=== PATIENT | male | born 1950 | race Caucasian/White ===

== ENCOUNTER 2018-10-28 14:39 | Emergency (ER) | payer MEDICARE, SELFPAY ==
[2018-10-28] VITALS (58 sets, daily range): BP systolic 145–181; BP diastolic 62–136; PULSE 62–91; RESP 8–20; TEMP 36.5; O2SAT 95–100
--- NOTE | 2018-10-28 15:05 | DI.RAD_ITS ---
SYMPTOMS/DIAGNOSIS: CHEST PAIN PA AND LATERAL CHEST: The lungs are well expanded and free of infiltrate. There is no pleural effusion. The heart is not enlarged. The hilar structures, mediastinum and tracheal air column are intact. SUMMARY: No evidence of acute cardiopulmonary disease.
--- NOTE | 2018-10-28 15:07 | W.ED.GENAD ---
Discharge Plan Disposition Patient Disposition: [facility] Condition: Serious Discharge Details Chief Complaint: Chest Pain Clinical Impression: ACS (acute coronary syndrome), Unstable angina Primary Care Provider: Lauren Mott ED Provider: Robbie Fernandez Home Meds and New Rx's Prescriptions: No Action latanoprost 2.5 ML drops 1 drp OD HS RF: 0 aspirin [Aspirin Low Dose] 81 MG tablet,delayed release (DR/EC) 1 tab PO Q OTHER DAY RF: 0 Vitamin B-12 50 MCG tablet 1 tab PO DAILY RF: 0 COSOPT EYE DROPS 5 ML drops 1 drp OU BID RF: 0 Discharge Data Discharge Date/Time-TO BE ENTERED AT DEPARTURE: 10/28/18 20:40 Medical Decision Making <Harris Manzano MD - Last Filed: 10/28/18 19:36> ECG Data Attestation: I personally reviewed and interpreted this ECG (s) as follows: Prior ECG tracings: not available for review Interpretation: sinus rhythm, rate of 60, pr 158, qtc 395, no acute st t wave ischemic findings sinus rhythm, rate of 75, normal qtc and no significant st t wave changes 3rd ekg shows sinus rhythm, normal rate and qtc, now has st elevations in II, III, aVF <EVE Verde - Last Filed: 10/29/18 09:41> Patient is a 68-year-old male presenting today with chief complaint of chest tightness. Reports that symptoms have been intermittent over the past 2 days. Reports that he has symptoms only with exertion. Reports that he is currently feeling at baseline without any discomfort. States he is having central chest tightness, weakness and occasional left shoulder discomfort with exertion. Reports that this afternoon, while shoveling snow, symptoms recurred. Reports that he went into the house and they have down after a few moments of his stabilization his symptoms seem to pass. Has not taken anything for his discomfort. Reports that he takes aspirin every other day, did not take any as of yet today. Denies any recent illness. No cough, cold, fevers or chills. Denies any GI upset. Denies any personal history of cardiac disorders. Does report that his father had an SD in his mid-to-late 50s. Vital signs significant for some hypertension at 160/91, otherwise within normal limit. EKG was reviewed by Dr. Jose Juan, please see his note. He does not note any acute ischemic changes History is concerning for cardiac etiology. Will obtain chest x-ray and laboratory evaluation. Given aspirin. Troponin 1.08. Will heparinize the patient. He remains asymptomatic. Radiologist contacted the department who advised that chest x-ray is without acute abnormality. Consulted with cardiology who advised that patient will be on the list for transfer to their facility, advised that list is short at this time and patient will likely go to their facility tonight or tomorrow morning. They advised adding Plavix to the Heparin, advised 300mg. Accepting physician will be Dr. Velasco. Will consult with hospitalist. At the end of my shift, care transitioned to Torsten Fernandez NP awaiting to hear from hospitalist regarding bed availability until able to be transfered to [facility] <Robbie Fernandez NP - Last Filed: 10/28/18 23:36> After handoff from [facility] patient was reassessed pending hospitalist admission while waiting for tertiary [facility] cardiac availability for further testing for unstable angina. Patient remained pain-free with no new complaints and stated he was comfortable otherwise. Spoke with Dr. Kauffman in regards to admission to our inpatient unit while patient receiving heparin and already been given Plavix and aspirin. Dr. Kauffman came to the emergency department and seen and evaluated patient for admission. Pending admission nursing staff development coordinator noticed some EKG changes on monitor but twelve-lead was performed and reviewed with Dr. Kenny Manzano. Called and spoke with Dr. Pizarro at [facility] cardiology team and informed them of the EKG changes as well as faxed the EKG. after discussing case with her attending Dr. Wynne agreement was to have patient admitted to their facility for further testing and stabilization. She recommended an additional 300 mg of Plavix and immediate transfer of patient down to their facility for further testing. Patient remains pain-free and otherwise asymptomatic. Pending transfer patient did have normalization of EKG with sinus rhythm, rate of 82, normal qtc, and no ST elevation or depression now noted. [facility] was informed of and EKG faxed to them but there is still significant concern of impending STEMI they still accepted patient in emergent transfer and recommended ground transfer with hand coremaker level care. Patient was in agreement to this plan and remained stable throughout emergency department stay. With no persistent ST elevation noted. HPI <Harris Manzano MD - Last Filed: 10/28/18 19:36> General Date/Time Provider Initiated Documentation: 10/28/18 15:05. Related Data Home Medications Medication Instructions Recorded Confirmed Cosopt Eye Drops 1 drp OU BID drp 02/13/13 10/28/18 aspirin [Low Dose Aspirin Ec] 1 tab PO Q OTHER DAY tab 02/13/13 10/28/18 cyanocobalamin (vitamin B-12) 1 tab PO DAILY 02/13/13 10/28/18 [Vitamin B-12] latanoprost 1 drp OD HS 02/13/13 10/28/18 Allergies Allergy/AdvReac Type Severity Reaction Status Date / Time brimonidine AdvReac Intermediate Topical Unverified 10/28/18 14:58 Irritation <EVE Verde - Last Filed: 10/29/18 09:41> General Mode of arrival: ambulatory. Limitations to Documentation: no limitations. Information obtained by: patient. History of Present Illness 68 year old M presents to the emergency department with the chief complaint of chest tightness, described as moderate, Quality is described as aching, and is localized to the chest. Patient extremity (to left shoulder). Patient started experiencing this day(s) (3) and it has been intermittent (only with exertion). Immobilization improves symptom(s), Movement worsens symptoms . Patient notes chest pain; denies cough, diaphoresis, fever/chills, loss of appetite, nausea/vomiting, rash, shortness of breath and weakness. Patient did receive the following treatments prior to arrival, none General Stated Complaint: Chest Pain VLADIMIR: 2 <EVE Verde - Last Filed: 10/29/18 09:41> Constitutional Reports as per HPI, Denies chills, Denies fever(s), Denies headache(s), Denies lethargy and Denies poor appetite Eyes Denies change in vision ENT Denies headache(s) Cardiovascular Reports as per HPI, Reports chest pain, Denies chest pain at rest, Reports chest pain with activity, Denies diaphoresis, Denies syncope, Denies rapid heart rate, Denies pedal edema, Denies edema, Denies irregular heart rhythm, Denies lightheadedness, Reports radiating jaw, neck or arm pain (radiating to left shoulder), Denies dyspnea and Denies dyspnea on exertion Respiratory Denies dyspnea, Denies dyspnea on exertion and Denies wheezing Gastrointestinal Reports as per HPI, Denies abdominal pain, Denies diarrhea, Denies nausea and Denies vomiting Genitourinary Denies system reviewed and no additional complaints, except as docu (denies change in urinary habits) Musculoskeletal Reports as per HPI and Denies back pain Integumentary/Breasts Reports as per HPI and Denies rash Neurologic Denies syncope and Denies headache(s) Allergic/Immunologic Denies wheezing PFSH <Harris Manzano MD - Last Filed: 10/28/18 19:36> Medical History Glaucoma Surgical History Eye Surgery (09/14/11) Sebaceous Cyst (06/27/10) colonoscopy (~2007) Family History Mother No problems noted. Father Hypertensive disorder, systemic arterial Heart disease Hyperlipidemia Brother Acute HIV infection Social History Smoking/Tobacco Use Status: Never <EVE Verde - Last Filed: 10/29/18 09:41> Const General: cooperative, healthy appearing, comfortable, no acute distress and well developed Nutritional Appearance: average body habitus and well nourished Orientation: alert, awake and oriented x3 HENMT Head: normal to inspection Ears: hearing grossly normal bilaterally Mouth: moist mucous membranes Chest Chest: normal inspection of the chest, normal palpation of entire chest wall and no crepitus Resp Effort & Inspection: normal respiratory effort, able to speak in complete sentences and no respiratory distress Auscultation: clear to auscultation bilaterally, no rales, no rhonchi and no wheezes Cardio Rate: regular rate Rhythm: regular rhythm Heart Sounds: S1 normal and S2 normal GI Inspection: normal to inspection, no edema and non-distended Palpation: soft, no hepatosplenomegaly, not firm, no guarding, not rigid and nontender Auscultation: normal bowel sounds Back/Spine/Pelvis Back: no CVA tenderness Thoracic/Lumbar Spine: thoracic and lumbar spine normal to inspection Skin General skin exam: no rashes or lesions noted Trauma: no lacerations or abrasions Neuro General: alert, awake and oriented x3 Cognition: normal cognition Speech: speech normal Gait: normal gait Extrem General: normal to inspection, normal capillary refill, no pedal edema, no calf tenderness and normal gait Psych Appearance: grossly normal and well kempt Mental Status: mental status grossly normal Speech and Movement: speech and movement normal <EVE Verde - Last Filed: 10/29/18 09:41> Vital Signs Temperature 36.5 C 10/28/18 14:53 Pulse 70 10/28/18 14:53 Respiratory Rate 16 10/28/18 14:53 Blood Pressure 162/91 H 10/28/18 14:53 Pulse Oximetry 100 10/28/18 14:53 Temperature 36.5 C 10/28/18 14:53 Temperature Source Skin 10/28/18 14:53 Pulse 70 10/28/18 14:53 Respiratory Rate 16 10/28/18 14:53 Respiratory Effort 10/28/18 14:55 Blood Pressure 162/91 H 10/28/18 14:53 Blood Pressure Position Supine 10/28/18 14:53 Pulse Oximetry 100 10/28/18 14:53 Oxygen Delivery Method Room Air 10/28/18 14:53 Oxygen Flow Rate 0 10/28/18 14:53 Pain Level 2 10/28/18 14:53 Critical Care Time <Harris Manzano MD - Last Filed: 10/28/18 19:36> Critical Care Time: Yes Total Critical Care Time: 60 Attestation: Time spent reviewing ekgs, initiating heparin, lab review and frequent reassessments in patient with acute coronary syndrome I was present and evaluated the patient with Robbie Fernandez. In brief pt came in with chest pain while exerting himself eralier in the day, pain free here, initial ekg's nondiagnostic and troponin was positive initially. He had a 3rd ekg after being admitted here with nstemi that showed ST elevations in the inferior leads but continued to have no chest pain so lytics were not given which cardiology at [facility] [place] agreed with. He is going to be transferred to [facility] [place] tonight given the ekg changes and not be admitted here Sign Out <Harris Manzano MD - Last Filed: 12/18/18 19:36> Sign Out Data: Sign Out Comment: At the end of my shift, patient signed out to Torsten Fernandez NP awaiting bed placement in ICU for continued monitoring of NSTEMI until [facility] is able to accept him in transfer. Plan is for patient to go tomorrow. Last updated by Cyn Asher PA at 10/28/18 16:46 Post-Handoff Eval:
--- NOTE | 2018-10-28 15:10 | ED.GENADUL_ITS ---
Discharge Plan Disposition Patient Disposition: [facility] Condition: Serious Discharge Details Chief Complaint: Chest Pain Clinical Impression: ACS (acute coronary syndrome), Unstable angina Primary Care Provider: Lauren Mott ED Provider: Robbie Fernandez Home Meds and New Rx's Prescriptions: No Action latanoprost 2.5 ML drops 1 drp OD HS RF: 0 aspirin [Aspirin Low Dose] 81 MG tablet,delayed release (DR/EC) 1 tab PO Q OTHER DAY RF: 0 Vitamin B-12 50 MCG tablet 1 tab PO DAILY RF: 0 COSOPT EYE DROPS 5 ML drops 1 drp OU BID RF: 0 Discharge Data Discharge Date/Time-TO BE ENTERED AT DEPARTURE: 10/28/18 20:40 Medical Decision Making <Harris Manzano MD - Last Filed: 10/28/18 19:36> ECG Data Attestation: I personally reviewed and interpreted this ECG (s) as follows: Prior ECG tracings: not available for review Interpretation: sinus rhythm, rate of 60, pr 158, qtc 395, no acute st t wave ischemic findings sinus rhythm, rate of 75, normal qtc and no significant st t wave changes 3rd ekg shows sinus rhythm, normal rate and qtc, now has st elevations in II, III, aVF <EVE Verde - Last Filed: 10/29/18 09:41> Patient is a 68-year-old male presenting today with chief complaint of chest tightness. Reports that symptoms have been intermittent over the past 2 days. Reports that he has symptoms only with exertion. Reports that he is currently feeling at baseline without any discomfort. States he is having central chest tightness, weakness and occasional left shoulder discomfort with exertion. Reports that this afternoon, while shoveling snow, symptoms recurred. Reports that he went into the house and they have down after a few moments of his stabilization his symptoms seem to pass. Has not taken anything for his discomfort. Reports that he takes aspirin every other day, did not take any as of yet today. Denies any recent illness. No cough, cold, fevers or chills. Denies any GI upset. Denies any personal history of cardiac disorders. Does report that his father had an TN in his mid-to-late 50s. Vital signs significant for some hypertension at 160/91, otherwise within normal limit. EKG was reviewed by Dr. Jose Juan, please see his note. He does not note any acute ischemic changes History is concerning for cardiac etiology. Will obtain chest x-ray and laboratory evaluation. Given aspirin. Troponin 1.08. Will heparinize the patient. He remains asymptomatic. Radiologist contacted the department who advised that chest x-ray is without acute abnormality. Consulted with cardiology who advised that patient will be on the list for transfer to their facility, advised that list is short at this time and patient will likely go to their facility tonight or tomorrow morning. They advised adding Plavix to the Heparin, advised 300mg. Accepting physician will be Dr. Velasco. Will consult with hospitalist. At the end of my shift, care transitioned to Torsten Fernandez NP awaiting to hear from hospitalist regarding bed availability until able to be transfered to [facility] [place] [place] <Robbie Fernandez NP - Last Filed: 10/28/18 23:36> After handoff from [facility] patient was reassessed pending hospitalist admission while waiting for tertiary [facility] cardiac availability for further testing for unstable angina. Patient remained pain-free with no new complaints and stated he was comfortable otherwise. Spoke with Dr. Kauffman in regards to admission to our inpatient unit while patient receiving heparin and already been given Plavix and aspirin. Dr. Kauffman came to the emergency department and seen and evaluated patient for admission. Pending admission event staff noticed some EKG changes on monitor but twelve-lead was performed and reviewed with Dr. Kenny Manzano. Called and spoke with Dr. Pizarro at [facility] cardiology team and informed them of the EKG changes as well as faxed the EKG. after discussing case with her attending Dr. Wynne agreement was to have patient admitted to their facility for further testing and stabilization. She recommended an additional 300 mg of Plavix and immediate transfer of patient down to their facility for further testing. Patient remains pain-free and otherwise asymptomatic. Pending transfer patient did have normalization of EKG with sinus rhythm, rate of 82, normal qtc, and no ST elevation or depression now noted. [facility] was informed of and EKG faxed to them but there is still significant concern of impending STEMI they still accepted patient in emergent transfer and recommended ground transfer with [facility] barrier attendant level care. Patient was in agreement to this plan and remained stable throughout emergency department stay. With no persistent ST elevation noted. HPI <Harris Manzano MD - Last Filed: 10/28/18 19:36> General Date/Time Provider Initiated Documentation: 10/28/18 15:05 . Related Data Home Medications Medication Instructions Recorded Confirmed Cosopt Eye Drops 1 drp OU BID drp 02/13/13 10/28/18 aspirin [Low Dose Aspirin Ec] 1 tab PO Q OTHER DAY tab 02/13/13 10/28/18 cyanocobalamin (vitamin B-12) 1 tab PO DAILY 02/13/13 10/28/18 [Vitamin B-12] latanoprost 1 drp OD HS 02/13/13 10/28/18 Allergies Allergy/AdvReac Type Severity Reaction Status Date / Time brimonidine AdvReac Intermediate Topical Unverified 10/28/18 14:58 Irritation <EVE Verde - Last Filed: 10/29/18 09:41> General Mode of arrival: ambulatory . Limitations to Documentation: no limitations . Information obtained by: patient . History of Present Illness 68 year old M presents to the emergency department with the chief complaint of chest tightness, described as moderate, Quality is described as aching, and is localized to the chest. Patient extremity (to left shoulder). Patient started experiencing this day(s) (3) and it has been intermittent (only with exertion). Immobilization improves symptom(s), Movement worsens symptoms . Patient notes chest pain; denies cough, diaphoresis, fever/chills, loss of appetite, nausea/vomiting, rash, shortness of breath and weakness. Patient did receive the following treatments prior to arrival, none General Stated Complaint: Chest Pain VLADIMIR: 2 <EVE Verde - Last Filed: 10/29/18 09:41> Constitutional Reports as per HPI, Denies chills, Denies fever(s), Denies headache(s), Denies lethargy and Denies poor appetite Eyes Denies change in vision ENT Denies headache(s) Cardiovascular Reports as per HPI, Reports chest pain, Denies chest pain at rest, Reports chest pain with activity, Denies diaphoresis, Denies syncope, Denies rapid heart rate, Denies pedal edema, Denies edema, Denies irregular heart rhythm, Denies lightheadedness, Reports radiating jaw, neck or arm pain (radiating to left shoulder), Denies dyspnea and Denies dyspnea on exertion Respiratory Denies dyspnea, Denies dyspnea on exertion and Denies wheezing Gastrointestinal Reports as per HPI, Denies abdominal pain, Denies diarrhea, Denies nausea and Denies vomiting Genitourinary Denies system reviewed and no additional complaints, except as docu (denies change in urinary habits) Musculoskeletal Reports as per HPI and Denies back pain Integumentary/Breasts Reports as per HPI and Denies rash Neurologic Denies syncope and Denies headache(s) Allergic/Immunologic Denies wheezing PFSH <Harris Manzano MD - Last Filed: 10/28/18 19:36> Medical History Glaucoma Surgical History Eye Surgery (09/14/11) Sebaceous Cyst (06/27/10) colonoscopy (~2007) Family History Mother No problems noted. Father Hypertensive disorder, systemic arterial Heart disease Hyperlipidemia Brother Acute HIV infection Social History Smoking/Tobacco Use Status: Never <EVE Verde - Last Filed: 10/29/18 09:41> Const General: cooperative, healthy appearing, comfortable, no acute distress and well developed Nutritional Appearance: average body habitus and well nourished Orientation: alert, awake and oriented x3 HENMT Head: normal to inspection Ears: hearing grossly normal bilaterally Mouth: moist mucous membranes Chest Chest: normal inspection of the chest, normal palpation of entire chest wall and no crepitus Resp Effort & Inspection: normal respiratory effort, able to speak in complete sentences and no respiratory distress Auscultation: clear to auscultation bilaterally, no rales, no rhonchi and no wheezes Cardio Rate: regular rate Rhythm: regular rhythm Heart Sounds: S1 normal and S2 normal GI Inspection: normal to inspection, no edema and non-distended Palpation: soft, no hepatosplenomegaly, not firm, no guarding, not rigid and nontender Auscultation: normal bowel sounds Back/Spine/Pelvis Back: no CVA tenderness Thoracic/Lumbar Spine: thoracic and lumbar spine normal to inspection Skin General skin exam: no rashes or lesions noted Trauma: no lacerations or abrasions Neuro General: alert, awake and oriented x3 Cognition: normal cognition Speech: speech normal Gait: normal gait Extrem General: normal to inspection, normal capillary refill, no pedal edema, no calf tenderness and normal gait Psych Appearance: grossly normal and well kempt Mental Status: mental status grossly normal Speech and Movement: speech and movement normal <EVE Verde - Last Filed: 10/29/18 09:41> Vital Signs Temperature 36.5 C 10/28/18 14:53 Pulse 70 10/28/18 14:53 Respiratory Rate 16 10/28/18 14:53 Blood Pressure 162/91 H 10/28/18 14:53 Pulse Oximetry 100 10/28/18 14:53 Temperature 36.5 C 10/28/18 14:53 Temperature Source Skin 10/28/18 14:53 Pulse 70 10/28/18 14:53 Respiratory Rate 16 10/28/18 14:53 Respiratory Effort 10/28/18 14:55 Blood Pressure 162/91 H 10/28/18 14:53 Blood Pressure Position Supine 10/28/18 14:53 Pulse Oximetry 100 10/28/18 14:53 Oxygen Delivery Method Room Air 10/28/18 14:53 Oxygen Flow Rate 0 10/28/18 14:53 Pain Level 2 10/28/18 14:53 Critical Care Time <Harris Manzano MD - Last Filed: 10/28/18 19:36> Critical Care Time: Yes Total Critical Care Time: 60 Attestation: Time spent reviewing ekgs, initiating heparin, lab review and frequent reassessments in patient with acute coronary syndrome I was present and evaluated the patient with Robbie Fernandez. In brief pt came in with chest pain while exerting himself eralier in the day, pain free here, initial ekg's nondiagnostic and troponin was positive initially. He had a 3rd ekg after being admitted here with nstemi that showed ST elevations in the inferior leads but continued to have no chest pain so lytics were not given which cardiology at [facility] [place] agreed with. He is going to be transferred to [facility] [place] tonight given the ekg changes and not be admitted here Sign Out <Harris Manzano MD - Last Filed: 12/18/18 19:36> Sign Out Data: Sign Out Comment: At the end of my shift, patient signed out to Torsten Fernandez NP awaiting bed placement in ICU for continued monitoring of NSTEMI until [facility] [place] [place] is able to accept him in transfer. Plan is for patient to go tomorrow. Last updated by Cyn Asher PA at 10/28/18 16:46 Post-Handoff Eval:
[2018-10-28] MEDS: Aspirin 81 MG CHEW 324 MG CH (15:16)
[2018-10-28 15:33] LABS: Abs Immature Grans 0.03 k/cumm (0.0-0.09); Absolute Basophil Count 0.04 k/cumm (0.0-0.2); Absolute Eosinophil Count 0.21 k/cumm (0.0-0.7); Absolute Lymphocyte Count 1.78 k/cumm (1.2-3.4); Absolute Monocyte Count 0.81 k/cumm (0.11-0.7); Absolute Neutrophil Count 5.97 k/cumm (1.2-6.7); Basophils % 0.5; Eosinophils % 2.4; HCT 48.9 % (40.0-50.0); HGB 16.3 g/dL (13.5-17.5); Immature Grans % 0.3; Lymphocytes % 20.1; Mean Corp. HGB Concentration 33.3 g/dL (32.0-36.0); Mean Corpuscular Hemoglobin 32.1 pg (27.0-33.0); Mean Corpuscular Volume 96.3 fL (80-95); Mean Platelet Volume 11.4 fL (8.0-11.0); Monocytes % 9.2; Neutrophils % 67.5; Platelet Count 222 x1000/uL (130-400); RBC 5.08 m/cumm (4.50-6.00); RBC Distribution Width 11.9 % (11.8-14.1); White Blood Cell Count 8.84 k/cumm (4.4-10.8)
[2018-10-28 15:38] LABS: PTT Activated 22.5 sec (21.0-31.4); Prothrombin Time 9.7 sec (9.3-11.0)
[2018-10-28 15:49] LABS: ALT 35 U/L (12-78); AST 32 U/L (15-37); Alkaline Phosphatase 145 U/L (46-116); Anion Gap 9.1 mmol/L (3-11); BUN 18 mg/dL (7-18); Bilirubin, Total 1.1 mg/dL (0.2-1.0); CO2 29.9 mmol/L (21.0-32.0); CREATININE 0.99 mg/dL (0.70-1.30); Chloride 102 mmol/L (98-107); Glucose 85 mg/dL (70-100); Magnesium 1.9 mg/dL (1.8-2.4); NT-proBNP 238 pg/mL; Potassium 3.9 mmol/L (3.5-5.1); Sodium 141 mmol/L (136-145); Total Protein 7.6 g/dL (6.4-8.2)
[2018-10-28 15:53] LABS: Troponin I 1.08 ng/mL (0.00-0.06)
--- NOTE | 2018-10-28 16:10 | DI.VRAD_ITS ---
EXAM: XR Chest, 2 Views EXAM DATE/TIME: 10/28/2018 3:55 PM CLINICAL HISTORY: 68 years old, male; Pain; Chest pain; Type not specified; Patient HX: Cp TECHNIQUE: XR of the chest, 2 views. COMPARISON: No relevant prior studies available. FINDINGS: Lungs: No focal consolidation.There is a 1 cm nodular density overlying the sixth right anterior rib. This could be related to the rib or represent a nipple shadow. Underlying pulmonary nodule is not excluded. If indicated, this can be further evaluated with cross-sectional imaging. Portions of the pulmonary parenchyma are obscured by overlying snaps. Biapical scarring. Pleural space: Unremarkable. No pleural effusion. No pneumothorax. Heart/Mediastinum: There is minimal mediastinal widening measuring 7.4 cm on upright images(normal is 6 cm or less). Heart size is normal. Upper abdomen: Moderate amount of stool shadow in the upper abdomen. This can be seen with constipation. Bones/joints: Skeletal degenerative changes. IMPRESSION: 1. No focal consolidation or pneumothorax. 2.There is a 1 cm nodular density overlying the sixth right anterior rib. This could be related to the rib or represent a nipple shadow. Underlying pulmonary nodule is not excluded. If indicated, this can be further evaluated with cross-sectional imaging. Comparison with older imaging studies, if available, would also be beneficial. 3.There is minimal mediastinal widening measuring 7.4 cm on upright images(normal is 6 cm or less). In the absence of prior imaging for comparison, mediastinal or vascular abnormalities are not excluded. If indicated, this can be further evaluated with CT. Other findings as above. Dictated and Authenticated by: Crytsal Dao MD. Ordering:LEORA Addison MD
[2018-10-28] MEDS: Clopidogrel 300 MG TAB PO ×2 (16:40→19:27)
--- NOTE | 2018-10-28 18:39 | W.PM.HP.N ---
Assessment and Plan (1) ACS (acute coronary syndrome): Current visit: Yes Status: Acute ACS. Patient quiet at present. Will continue heparin, Plavix and ASA; will add beta darby and statin. Planned transfer for cath in AM. If develops CP at rest will arrange urgent transfer. History of Present Illness Chief Complaint: CP Narrative: 68 yo here with 3 days of exertional CP -- heaviness, radiating to shoulders. Unsure how long it lasts but resolves while he naps. In ER + troponin noted, started ASA, Plavix and heparin. [facility] [place] and [facility] contacted, no availability tonight, admitted here with planned transfer for cath in AM. Pain free at this time. PMH: Borderline HTN Allergies: brimonidine Meds: see list below PE:BP 162/91, p 70, rr16, afebrile. HEENT unremarkable. Neck JVP 6cm. Lungs clear. Heart RRR w/o m/r/g. Abdomen soft and nontender. Extremities no edema pulses 2+/= Lab: WBC 8.8, Hct 48,plt 222Na 141, K 3.9, Cl 102, HCO3 29, BUN 18, Cr 0.9, Troponin 1.08, EKG Q v1,v2, new from baseline, but ? lead placement (these two leads are in non-standard position on patient, both in second ICS) Review of Systems Review of Systems All systems reviewed & are unremarkable except as noted in HPI and below PFSH Medical History Glaucoma Surgical History Eye Surgery (09/14/11) Sebaceous Cyst (06/27/10) colonoscopy (~2007) Family History Mother No problems noted. Father Hypertensive disorder, systemic arterial Heart disease Hyperlipidemia Brother Acute HIV infection Social History Smoking/Tobacco Use Status: Never Meds Home Medications Medication Instructions Recorded Confirmed Type Cosopt Eye Drops 1 drp OU BID drp 02/13/13 10/28/18 History aspirin [Low Dose Aspirin Ec] 1 tab PO Q OTHER DAY tab 02/13/13 10/28/18 History cyanocobalamin (vitamin B-12) 1 tab PO DAILY 02/13/13 10/28/18 History [Vitamin B-12] latanoprost 1 drp OD HS 02/13/13 10/28/18 History Allergies Allergy/AdvReac Type Severity Reaction Status Date / Time brimonidine AdvReac Intermediate Topical Unverified 10/28/18 14:58 Irritation Exam Narrative Exam Narrative: per HPI Results Labs : 10/28/18 15:08 10/28/18 15:08 Laboratory Results - last 24 hr 10/28/18 10/28/18 10/28/18 15:06 15:06 15:06 WBC Cancelled RBC Cancelled Hgb Cancelled Hct Cancelled MCV Cancelled MCH Cancelled MCHC Cancelled RDW Cancelled Plt Count Cancelled MPV Cancelled Abs Immat Gran (auto) Cancelled Immature Gran % Cancelled Neutrophils % Cancelled Lymphocytes % Cancelled Monocytes % Cancelled Eosinophils % Cancelled Basophils % Cancelled Absolute Neutrophils Cancelled Band Neutrophils Cancelled Absolute Lymphocytes Cancelled Absolute Monocytes Cancelled Absolute Eosinophils Cancelled Absolute Basophils Cancelled Metamyelocytes Cancelled Myelocytes Cancelled Promyelocytes Cancelled Nucleated RBCs Cancelled Differential Comment Cancelled Atypical Lymphocytes Cancelled Other Cell Type Cancelled RBC Morphology Cancelled Polychromasia Cancelled Hypochromasia Cancelled Poikilocytosis Cancelled Basophilic Stippling Cancelled Anisocytosis Cancelled Microcytosis Cancelled Macrocytosis Cancelled Spherocytes Cancelled Target Cells Cancelled Tear Drop Cells Cancelled Ovalocytes Cancelled Stomatocytes Cancelled Gauthier-Bluford Bodies Cancelled Anna Cells Cancelled Acanthocytes (Spur) Cancelled Schistocytes Cancelled PT Cancelled INR Cancelled APTT Cancelled Sodium Cancelled Potassium Cancelled Chloride Cancelled Carbon Dioxide Cancelled Anion Gap Cancelled BUN Cancelled Creatinine Cancelled Estimated GFR/1.73 m2 Cancelled Glucose Cancelled Calcium Cancelled Magnesium Cancelled Total Bilirubin Cancelled AST Cancelled ALT Cancelled Alkaline Phosphatase Cancelled Troponin I Cancelled NT-Pro-B Natriuret Pep Cancelled Total Protein Cancelled Albumin Cancelled 10/28/18 10/28/18 10/28/18 15:08 15:08 15:08 WBC 8.84 RBC 5.08 Hgb 16.3 Hct 48.9 MCV 96.3 H MCH 32.1 MCHC 33.3 RDW 11.9 Plt Count 222 MPV 11.4 H Abs Immat Gran (auto) Immature Gran % 0.3 Neutrophils % 67.5 Lymphocytes % 20.1 Monocytes % 9.2 Eosinophils % 2.4 Basophils % 0.5 Absolute Neutrophils 5.97 Band Neutrophils Absolute Lymphocytes 1.78 Absolute Monocytes 0.81 H Absolute Eosinophils 0.21 Absolute Basophils 0.04 Metamyelocytes Myelocytes Promyelocytes Nucleated RBCs Differential Comment Atypical Lymphocytes Other Cell Type RBC Morphology Polychromasia Hypochromasia Poikilocytosis Basophilic Stippling Anisocytosis Microcytosis Macrocytosis Spherocytes Target Cells Tear Drop Cells Ovalocytes Stomatocytes Gauthier-Bluford Bodies Patterson Cells Acanthocytes (Spur) Schistocytes PT 9.7 INR 1.0 APTT 22.5 Sodium 141 Potassium 3.9 Chloride 102 Carbon Dioxide 29.9 Anion Gap 9.1 BUN 18 Creatinine 0.99 Estimated GFR/1.73 m2 >= 60.00 Glucose 85 Calcium 9.0 Magnesium 1.9 Total Bilirubin 1.1 H AST 32 ALT 35 Alkaline Phosphatase 145 H Troponin I 1.08 H NT-Pro-B Natriuret Pep 238 Total Protein 7.6 Albumin 4.0 Last Vital Signs Temp 36.5 C 10/28/18 14:53 Pulse 70 10/28/18 14:53 Resp 18 10/28/18 15:05 BP 162/91 H 10/28/18 14:53 Pulse Ox 100 10/28/18 14:53
--- NOTE | 2018-10-28 18:50 | HPE_ITS ---
Assessment and Plan (1) ACS (acute coronary syndrome): Current visit: Yes Status: Acute ACS. Patient quiet at present. Will continue heparin, Plavix and ASA; will add beta darby and statin. Planned transfer for cath in AM. If develops CP at rest will arrange urgent transfer. History of Present Illness Chief Complaint: CP Narrative: 68 yo here with 3 days of exertional CP -- heaviness, radiating to shoulders. Unsure how long it lasts but resolves while he naps. In ER + troponin noted, started ASA, Plavix and heparin. [facility] and [facility] contacted, no availability tonight, admitted here with planned transfer for cath in AM. Pain free at this time. PMH: Borderline HTN Allergies: brimonidine Meds: see list below PE:BP 162/91, p 70, rr16, afebrile. HEENT unremarkable. Neck JVP 6cm. Lungs clear. Heart RRR w/o m/r/g. Abdomen soft and nontender. Extremities no edema pulses 2+/= Lab: WBC 8.8, Hct 48,plt 222Na 141, K 3.9, Cl 102, HCO3 29, BUN 18, Cr 0.9, Troponin 1.08, EKG Q v1,v2, new from baseline, but ? lead placement (these two leads are in non-standard position on patient, both in second ICS) Review of Systems Review of Systems All systems reviewed & are unremarkable except as noted in HPI and below PFSH Medical History Glaucoma Surgical History Eye Surgery (09/14/11) Sebaceous Cyst (06/27/10) colonoscopy (~2007) Family History Mother No problems noted. Father Hypertensive disorder, systemic arterial Heart disease Hyperlipidemia Brother Acute HIV infection Social History Smoking/Tobacco Use Status: Never Meds Home Medications Medication Instructions Recorded Confirmed Type Cosopt Eye Drops 1 drp OU BID drp 02/13/13 10/28/18 History aspirin [Low Dose Aspirin Ec] 1 tab PO Q OTHER DAY tab 02/13/13 10/28/18 History cyanocobalamin (vitamin B-12) 1 tab PO DAILY 02/13/13 10/28/18 History [Vitamin B-12] latanoprost 1 drp OD HS 02/13/13 10/28/18 History Allergies Allergy/AdvReac Type Severity Reaction Status Date / Time brimonidine AdvReac Intermediate Topical Unverified 10/28/18 14:58 Irritation Exam Narrative Exam Narrative: per HPI Results Labs : 10/28/18 15:08 10/28/18 15:08 Laboratory Results - last 24 hr 10/28/18 10/28/18 10/28/18 15:06 15:06 15:06 WBC Cancelled RBC Cancelled Hgb Cancelled Hct Cancelled MCV Cancelled MCH Cancelled MCHC Cancelled RDW Cancelled Plt Count Cancelled MPV Cancelled Abs Immat Gran (auto) Cancelled Immature Gran % Cancelled Neutrophils % Cancelled Lymphocytes % Cancelled Monocytes % Cancelled Eosinophils % Cancelled Basophils % Cancelled Absolute Neutrophils Cancelled Band Neutrophils Cancelled Absolute Lymphocytes Cancelled Absolute Monocytes Cancelled Absolute Eosinophils Cancelled Absolute Basophils Cancelled Metamyelocytes Cancelled Myelocytes Cancelled Promyelocytes Cancelled Nucleated RBCs Cancelled Differential Comment Cancelled Atypical Lymphocytes Cancelled Other Cell Type Cancelled RBC Morphology Cancelled Polychromasia Cancelled Hypochromasia Cancelled Poikilocytosis Cancelled Basophilic Stippling Cancelled Anisocytosis Cancelled Microcytosis Cancelled Macrocytosis Cancelled Spherocytes Cancelled Target Cells Cancelled Tear Drop Cells Cancelled Ovalocytes Cancelled Stomatocytes Cancelled Gauthier-Wollochet Bodies Cancelled Anna Cells Cancelled Acanthocytes (Spur) Cancelled Schistocytes Cancelled PT Cancelled INR Cancelled APTT Cancelled Sodium Cancelled Potassium Cancelled Chloride Cancelled Carbon Dioxide Cancelled Anion Gap Cancelled BUN Cancelled Creatinine Cancelled Estimated GFR/1.73 m2 Cancelled Glucose Cancelled Calcium Cancelled Magnesium Cancelled Total Bilirubin Cancelled AST Cancelled ALT Cancelled Alkaline Phosphatase Cancelled Troponin I Cancelled NT-Pro-B Natriuret Pep Cancelled Total Protein Cancelled Albumin Cancelled 10/28/18 10/28/18 10/28/18 15:08 15:08 15:08 WBC 8.84 RBC 5.08 Hgb 16.3 Hct 48.9 MCV 96.3 H MCH 32.1 MCHC 33.3 RDW 11.9 Plt Count 222 MPV 11.4 H Abs Immat Gran (auto) Immature Gran % 0.3 Neutrophils % 67.5 Lymphocytes % 20.1 Monocytes % 9.2 Eosinophils % 2.4 Basophils % 0.5 Absolute Neutrophils 5.97 Band Neutrophils Absolute Lymphocytes 1.78 Absolute Monocytes 0.81 H Absolute Eosinophils 0.21 Absolute Basophils 0.04 Metamyelocytes Myelocytes Promyelocytes Nucleated RBCs Differential Comment Atypical Lymphocytes Other Cell Type RBC Morphology Polychromasia Hypochromasia Poikilocytosis Basophilic Stippling Anisocytosis Microcytosis Macrocytosis Spherocytes Target Cells Tear Drop Cells Ovalocytes Stomatocytes Gauthier-Wollochet Bodies [place] Cells Acanthocytes (Spur) Schistocytes PT 9.7 INR 1.0 APTT 22.5 Sodium 141 Potassium 3.9 Chloride 102 Carbon Dioxide 29.9 Anion Gap 9.1 BUN 18 Creatinine 0.99 Estimated GFR/1.73 m2 >= 60.00 Glucose 85 Calcium 9.0 Magnesium 1.9 Total Bilirubin 1.1 H AST 32 ALT 35 Alkaline Phosphatase 145 H Troponin I 1.08 H NT-Pro-B Natriuret Pep 238 Total Protein 7.6 Albumin 4.0 Last Vital Signs Temp 36.5 C 10/28/18 14:53 Pulse 70 10/28/18 14:53 Resp 18 10/28/18 15:05 BP 162/91 H 10/28/18 14:53 Pulse Ox 100 10/28/18 14:53
[2018-10-28] MEDS: Metoprolol 25 MG TAB PO (19:05)
[2018-10-28 19:45] LABS: Troponin I 0.92 ng/mL (0.00-0.06)
== END 2018-10-28 20:40 | disposition short-term general hospital (02) ==
PROVIDERS: Physician Assistant; Emergency Provider Nurse Practitioner Family; PCP Internal Medicine
DX: I24.9 Acute ischemic heart disease, unspecified (principal); I20.0 Unstable angina
CPT/HCPCS: 36415; 80053; 93005; 96361; 96365; 96366; 99222; 99291; 71046; 83735; 83880; 84484; 85025; 85610; 85730; 93010

== ENCOUNTER 2018-11-13 21:15 | Outpatient (RCR) | payer MEDICARE, SELFPAY | END 2018-12-11 23:59 | disposition home or self-care (01) | LOC: CR 21:15 | PROVIDERS: PCP Internal Medicine; Visit Provider Family Medicine | DX: Z51.89 Encounter for other specified aftercare (principal); Z95.1 Presence of aortocoronary bypass graft ==

== ENCOUNTER 2018-11-27 14:52 | Outpatient (RCR) | payer MEDICARE, SELFPAY | END 2018-12-11 23:59 | disposition home or self-care (01) | LOC: CR 14:52 | PROVIDERS: PCP Internal Medicine; Visit Provider Family Medicine | DX: Z95.2 Presence of prosthetic heart valve (principal); Z51.89 Encounter for other specified aftercare ==

== ENCOUNTER 2018-12-19 10:00 | Outpatient (RCR) | payer MEDICARE, SELFPAY | END 2018-12-21 08:56 | LOC: CR 10:00 | PROVIDERS: PCP Internal Medicine; Visit Provider Family Medicine | DX: Z95.1 Presence of aortocoronary bypass graft (principal); Z51.89 Encounter for other specified aftercare | CPT/HCPCS: S9472 ==

== ENCOUNTER 2019-01-07 10:00 | Outpatient (RCR) | payer MEDICARE, SELFPAY | END 2019-01-08 23:59 | disposition home or self-care (01) | LOC: CR 10:00 | PROVIDERS: PCP Internal Medicine; Visit Provider Family Medicine | DX: Z95.1 Presence of aortocoronary bypass graft (principal); Z51.89 Encounter for other specified aftercare | CPT/HCPCS: S9472 ==

== ENCOUNTER 2019-02-06 12:52 | Outpatient (RCR) | payer MEDICARE, SELFPAY | END 2019-02-08 23:59 | disposition home or self-care (01) | LOC: CR 12:52 | PROVIDERS: PCP Internal Medicine; Visit Provider Family Medicine | DX: Z95.1 Presence of aortocoronary bypass graft (principal); Z51.89 Encounter for other specified aftercare | CPT/HCPCS: S9472 ==

== ENCOUNTER → 2019-02-18 13:47 | Outpatient (BNVA) | payer MEDICARE, SELFPAY | PROVIDERS: PCP Internal Medicine; Referring Provider Internal Medicine; Visit Provider Student in an Organized Health Care Education/Training Program | DX: I24.9 Acute ischemic heart disease, unspecified (principal); I25.10 Atherosclerotic heart disease of native coronary artery without angina pectoris; Z95.818 Presence of other cardiac implants and grafts | CPT/HCPCS: 99204; 99214 ==

== ENCOUNTER 2019-02-18 14:59 | Outpatient (CLI) | payer MEDICARE, SELFPAY ==
[2019-02-18 15:38] LABS: Abs Immature Grans 0.01 k/cumm (0.0-0.09); Absolute Basophil Count 0.03 k/cumm (0.0-0.2); Absolute Eosinophil Count 0.16 k/cumm (0.0-0.7); Absolute Lymphocyte Count 1.93 k/cumm (1.2-3.4); Absolute Monocyte Count 0.65 k/cumm (0.11-0.7); Basophils % 0.4; HCT 45.7 % (40.0-50.0); HGB 14.7 g/dL (13.5-17.5); Immature Grans % 0.1; Lymphocytes % 24.5; Mean Corp. HGB Concentration 32.2 g/dL (32.0-36.0); Mean Corpuscular Hemoglobin 30.9 pg (27.0-33.0); Monocytes % 8.2; Neutrophils % 64.8; Platelet Count 210 x1000/uL (130-400); RBC 4.76 m/cumm (4.50-6.00); White Blood Cell Count 7.88 k/cumm (4.4-10.8)
[2019-02-18 16:34] LABS: ALT 59 U/L (12-78); AST 40 U/L (15-37); Albumin 3.9 g/dL (3.4-5.0); Alkaline Phosphatase 202 U/L (46-116); Anion Gap 9.1 mmol/L (3-11); BUN 24 mg/dL (7-18); Bilirubin, Total 0.9 mg/dL (0.2-1.0); CO2 28.9 mmol/L (21.0-32.0); CREATININE 0.87 mg/dL (0.70-1.30); Calcium 8.9 mg/dL (8.5-10.1); Chloride 103 mmol/L (98-107); FREE T4 0.87 ng/dL (0.76-1.46); Glucose 85 mg/dL (70-100); Magnesium 2.1 mg/dL (1.8-2.4); Potassium 4.4 mmol/L (3.5-5.1); Sodium 141 mmol/L (136-145); TSH 1.49 uIU/mL (0.358-3.74)
[2019-02-18 16:36] LABS: Troponin I < 0.02 ng/mL (0.00-0.06)
[2019-02-18 16:47] LABS: Cholesterol 114 mg/dL (50-200); HDL Cholesterol 52 mg/dL (40-60); LDL CHOLESTEROL 44 mg/dL (<100); Triglyceride 124 mg/dL (30-150)
[2019-02-19 06:11] LABS: Vitamin D 25 Total 13.1 ng/ml (30-100)
== END 2019-02-18 15:19 ==
PROVIDERS: PCP Internal Medicine; Visit Provider Student in an Organized Health Care Education/Training Program
DX: R53.1 Weakness (principal); I24.9 Acute ischemic heart disease, unspecified; Z95.1 Presence of aortocoronary bypass graft; I25.10 Atherosclerotic heart disease of native coronary artery without angina pectoris; Z95.818 Presence of other cardiac implants and grafts
CPT/HCPCS: 36415; 80048; 80061; 80076; 82306; 83721; 99204; 99214; 83735; 84439; 84443; 84484; 85025

== ENCOUNTER 2019-03-06 10:00 | Outpatient (RCR) | payer MEDICARE, SELFPAY | END 2019-03-10 23:59 | disposition home or self-care (01) | LOC: CR 10:00 | PROVIDERS: PCP Internal Medicine; Visit Provider Family Medicine | DX: Z95.1 Presence of aortocoronary bypass graft (principal); Z51.89 Encounter for other specified aftercare | CPT/HCPCS: S9472 ==

== ENCOUNTER → 2019-04-08 09:23 | Outpatient (BNVA) | payer MEDICARE, SELFPAY | PROVIDERS: PCP Internal Medicine; Visit Provider Student in an Organized Health Care Education/Training Program | DX: I24.9 Acute ischemic heart disease, unspecified (principal); Z95.1 Presence of aortocoronary bypass graft; N52.9 Male erectile dysfunction, unspecified; E55.9 Vitamin D deficiency, unspecified; Z79.82 Long term (current) use of aspirin; I25.2 Old myocardial infarction | CPT/HCPCS: 99214 ==

== ENCOUNTER → 2019-07-27 10:25 | Outpatient (BNVA) | payer MEDICARE, SELFPAY | PROVIDERS: PCP Internal Medicine; Visit Provider Student in an Organized Health Care Education/Training Program | DX: I24.9 Acute ischemic heart disease, unspecified (principal); N52.9 Male erectile dysfunction, unspecified; E55.9 Vitamin D deficiency, unspecified | CPT/HCPCS: 99213 ==

== ENCOUNTER → 2020-07-28 11:21 | Outpatient (BNVA) | payer MEDICARE, SELFPAY | PROVIDERS: PCP Internal Medicine; Referring Provider Internal Medicine; Visit Provider Internal Medicine Cardiovascular Disease | DX: I25.10 Atherosclerotic heart disease of native coronary artery without angina pectoris (principal); I24.9 Acute ischemic heart disease, unspecified; Z79.899 Other long term (current) drug therapy | CPT/HCPCS: 99214 ==

== ENCOUNTER 2020-12-19 03:26 | Outpatient (CLI) | payer MEDICARE, SELFPAY ==
[2020-12-19 12:23] LABS: Anion Gap 3.1 mmol/L (3-11); BUN 23 mg/dL (7-18); CO2 32.9 mmol/L (21.0-32.0); CREATININE 1.2 mg/dL (0.70-1.30); Calcium 8.9 mg/dL (8.5-10.1); Calculated LDL 64 mg/dL (<100); Chloride 106 mmol/L (98-107); Cholesterol 138 mg/dL (<200); Glucose 100 mg/dL (74-106); HDL Cholesterol 62 mg/dL (40-60); Potassium 5.3 mmol/L (3.5-5.1); Sodium 142 mmol/L (136-145); Triglyceride 62 mg/dL (<150)
== END 2020-12-19 03:27 | disposition home or self-care (01) ==
LOC: LBO 03:26
PROVIDERS: PCP Internal Medicine; Visit Provider Internal Medicine
DX: I10 Essential (primary) hypertension (principal); E78.00 Pure hypercholesterolemia, unspecified
CPT/HCPCS: 36415; 80048; 80061

== ENCOUNTER 2020-12-26 02:07 | Outpatient (CLI) | payer MEDICARE, SELFPAY ==
[2020-12-26 15:39] LABS: Potassium 4.2 mmol/L (3.5-5.1)
== END 2020-12-26 02:08 | disposition home or self-care (01) ==
LOC: LBO 02:07
PROVIDERS: PCP Internal Medicine; Visit Provider Internal Medicine
DX: E87.5 Hyperkalemia (principal)
CPT/HCPCS: 36415; 84132

== ENCOUNTER → 2021-07-31 11:11 | Outpatient (BNVA) | payer MEDICARE, SELFPAY | PROVIDERS: PCP Internal Medicine; Referring Provider Internal Medicine; Visit Provider Internal Medicine Cardiovascular Disease | DX: I25.10 Atherosclerotic heart disease of native coronary artery without angina pectoris (principal); E78.5 Hyperlipidemia, unspecified; I10 Essential (primary) hypertension | CPT/HCPCS: 99214; 99213 ==

== ENCOUNTER 2022-01-22 02:25 | Outpatient (CLI) | payer MEDICARE, SELFPAY ==
[2022-01-22 12:30] LABS: Anion Gap 6.9 mmol/L (3-11); BUN 20 mg/dL (7-18); CO2 30.1 mmol/L (21.0-32.0); CREATININE 1.2 mg/dL (0.70-1.30); Calcium 8.9 mg/dL (8.5-10.1); Calculated LDL 66 mg/dL (<100); Chloride 105 mmol/L (98-107); Cholesterol 146 mg/dL (<200); Estimated GFR 59.86 (mL/min/1.73m2); Glucose 81 mg/dL (74-106); HDL Cholesterol 65 mg/dL (40-60); Potassium 4.4 mmol/L (3.5-5.1); Sodium 142 mmol/L (136-145); Triglyceride 78 mg/dL (<150)
== END 2022-01-22 02:26 | disposition home or self-care (01) ==
LOC: LBO 02:25
PROVIDERS: PCP Internal Medicine; Visit Provider Internal Medicine
DX: E78.00 Pure hypercholesterolemia, unspecified (principal); I10 Essential (primary) hypertension
CPT/HCPCS: 36415; 80048; 80061

== ENCOUNTER → 2022-03-13 11:03 | Outpatient (BNVA) | payer MEDICARE, SELFPAY | PROVIDERS: PCP Internal Medicine; Referring Provider Internal Medicine; Visit Provider Nurse Practitioner Gerontology | DX: R35.0 Frequency of micturition (principal); R39.15 Urgency of urination | CPT/HCPCS: 51798; 81003; 99215 ==

== ENCOUNTER → 2022-04-20 14:51 | Outpatient (BNVA) | payer MEDICARE, SELFPAY | PROVIDERS: PCP Internal Medicine; Referring Provider Internal Medicine; Visit Provider Nurse Practitioner Gerontology | DX: R35.0 Frequency of micturition (principal); R39.15 Urgency of urination | CPT/HCPCS: 51798; 99213 ==

== ENCOUNTER 2022-06-19 03:27 | Outpatient (CLI) | payer MEDICARE, SELFPAY ==
[2022-06-19 14:05] LABS: Creatine Kinase 78 U/L (39-308)
[2022-06-19 14:31] LABS: TSH (W/Ref FT4) 1.49 uIU/mL (0.36-3.74); Vitamin B12 782 pg/mL (193-986)
[2022-06-19 22:02] LABS: CRP, High Sensitivity <0.34 mg/L (See Note)
[2022-06-20 13:53] LABS: ANA Interpretation Negative (Negative)
== END 2022-06-19 03:28 | disposition home or self-care (01) ==
LOC: LBO 03:27
PROVIDERS: PCP Family Medicine; Visit Provider Family Medicine
DX: R29.898 Other symptoms and signs involving the musculoskeletal system (principal); E78.5 Hyperlipidemia, unspecified
CPT/HCPCS: 36415; 82550; 86141; 82607; 84443; 86038

== ENCOUNTER → 2022-07-19 12:50 | Outpatient (BNVA) | payer MEDICARE, SELFPAY | PROVIDERS: PCP Family Medicine; Referring Provider Family Medicine; Visit Provider Psychiatry & Neurology Neurology | DX: G56.22 Lesion of ulnar nerve, left upper limb (principal); R20.0 Anesthesia of skin | CPT/HCPCS: 95910; 99214 ==

== ENCOUNTER 2022-07-30 09:22 | Outpatient (CLI) | payer MEDICARE, SELFPAY ==
--- NOTE | 2022-07-30 09:15 | RT.EKG_ITS ---
APPROVED REPORT Exam: Resting ECG Reason for Exam: CAD Patient Location: O HR:62 bpm ECG Measurements Heart Rate 62 AXIS SD 183 P 40 QRSd 98 QRS 91 QT 406 T 17 QTc 413 Conclusion Sinus rhythm...normal P axis, V-rate 50- 99 Right axis deviation...QRS axis ( 91,269) Low voltage, precordial leads...precordial leads <1.0mV Baseline wander in lead(s) I,II,aVR
== END 2022-07-30 09:23 | disposition home or self-care (01) ==
LOC: DI.CARD 09:23
PROVIDERS: PCP Family Medicine; Visit Provider Internal Medicine Cardiovascular Disease
DX: I25.10 Atherosclerotic heart disease of native coronary artery without angina pectoris (principal)
CPT/HCPCS: 93010

== ENCOUNTER → 2022-07-30 11:10 | Outpatient (BNVA) | payer MEDICARE, SELFPAY | PROVIDERS: PCP Family Medicine; Visit Provider Internal Medicine Cardiovascular Disease | DX: I25.10 Atherosclerotic heart disease of native coronary artery without angina pectoris (principal); I10 Essential (primary) hypertension; E78.5 Hyperlipidemia, unspecified | CPT/HCPCS: 93005; 99214 ==

== ENCOUNTER → 2022-08-27 00:51 | Outpatient (CLI) | payer MEDICARE, SELFPAY ==
--- NOTE | 2022-08-27 07:26 | DI.MRI_ITS ---
Exam(s) MR BRAIN WO EXAM: MR BRAIN WO CLINICAL HISTORY: Left arm numbness/weakness R20.0 ANESTHESIA OF SKIN TECHNIQUE: Multiplanar multisequence MRI of the brain was performed. COMPARISON: No exams were available for comparison FINDINGS: VENTRICLES AND EXTRA AXIAL SPACES: Normal in size and morphology for the patient's age. MIDLINE SHIFT: None. CEREBRAL PARENCHYMA: No focus of restricted diffusion to suggest acute infarct. No space-occupying le nathaly identified. HEMORRHAGE: None. BRAINSTEM/CEREBELLUM: Normal. CALVARIUM: Normal. VISUALIZED PARANASAL SINUSES/MASTOIDS:There is mild mucosal thickening in the right maxillary sinus. The remaining visualized paranasal sinuses are clear. JAMUL OF [place]: Normal flow void. PITUITARY GLAND: Unremarkable. OTHER FINDINGS: None. IMPRESSION: No acute intracranial process. No evidence of an acute infarct. DATA REPOSITORY:
== END ==
PROVIDERS: PCP Family Medicine; Visit Provider Psychiatry & Neurology Neurology
DX: R20.0 Anesthesia of skin (principal)
CPT/HCPCS: 70551

== ENCOUNTER → 2022-08-30 12:18 | Outpatient (BNVA) | payer MEDICARE, SELFPAY | PROVIDERS: PCP Family Medicine; Referring Provider Family Medicine; Visit Provider Psychiatry & Neurology Neurology | DX: G56.22 Lesion of ulnar nerve, left upper limb (principal); I10 Essential (primary) hypertension | CPT/HCPCS: 99213 ==

== ENCOUNTER 2023-03-27 03:16 | Outpatient (CLI) | payer MEDICARE, SELFPAY ==
[2023-03-27 09:48] LABS: Anion Gap 4.9 mmol/L (3-11); BUN 19 mg/dL (7-18); CO2 34.1 mmol/L (21.0-32.0); CREATININE 1.1 mg/dL (0.70-1.30); Calculated LDL 36 mg/dL (<100); Chloride 104 mmol/L (98-107); Cholesterol 116 mg/dL (<200); Estimated GFR 71.77 (mL/min/1.73m2); Glucose 96 mg/dL (74-106); HDL Cholesterol 61 mg/dL (40-60); Potassium 4.1 mmol/L (3.5-5.1); Sodium 143 mmol/L (136-145); Triglyceride 96 mg/dL (<150)
== END 2023-03-27 03:17 | disposition home or self-care (01) ==
LOC: LBO 03:16
PROVIDERS: PCP Nurse Practitioner Adult Health; Visit Provider Nurse Practitioner Adult Health
DX: I10 Essential (primary) hypertension (principal); E78.5 Hyperlipidemia, unspecified
CPT/HCPCS: 36415; 80048; 80061

== ENCOUNTER 2023-07-29 10:53 | Outpatient (CLI) | payer MEDICARE, SELFPAY ==
--- NOTE | 2023-07-29 10:45 | RT.EKG_ITS ---
APPROVED REPORT Exam: Resting ECG Reason for Exam: follow up yearly EKG Patient Location: O HR:60 bpm ECG Measurements Heart Rate 60 AXIS LA 186 P 67 QRSd 83 QRS 89 QT 411 T 63 QTc 411 Conclusion Sinus rhythm...normal P axis, V-rate 50- 99 Normal Electrocardiogram
== END 2023-07-29 10:54 | disposition home or self-care (01) ==
LOC: DI.CARD 10:56
PROVIDERS: PCP Nurse Practitioner Adult Health; Visit Provider Internal Medicine Cardiovascular Disease
DX: Z13.6 Encounter for screening for cardiovascular disorders (principal)
CPT/HCPCS: 93010

== ENCOUNTER → 2023-07-29 10:53 | Outpatient (BNVA) | payer MEDICARE, SELFPAY | PROVIDERS: PCP Nurse Practitioner Adult Health; Referring Provider Nurse Practitioner Adult Health; Visit Provider Internal Medicine Cardiovascular Disease | DX: I25.810 Atherosclerosis of coronary artery bypass graft(s) without angina pectoris (principal); I10 Essential (primary) hypertension; E78.5 Hyperlipidemia, unspecified | CPT/HCPCS: 93005; 99213 ==

== ENCOUNTER 2024-03-27 01:51 | Outpatient (CLI) | payer MEDICARE, SELFPAY ==
[2024-03-27 10:16] LABS: Anion Gap 3.8 mmol/L (3-11); BUN 18 mg/dL (7-18); CO2 29.2 mmol/L (21.0-32.0); CREATININE 1.1 mg/dL (0.70-1.30); Calcium 8.8 mg/dL (8.5-10.1); Calculated LDL 37 mg/dL (<100); Chloride 105 mmol/L (98-107); Cholesterol 118 mg/dL (<200); Estimated GFR 71.32 (mL/min/1.73m2); Glucose 96 mg/dL (74-106); HDL Cholesterol 61 mg/dL (40-60); Sodium 138 mmol/L (136-145); Triglyceride 104 mg/dL (<150)
== END 2024-03-27 01:52 | disposition home or self-care (01) ==
LOC: LBO 01:51
PROVIDERS: Absent Provider Nurse Practitioner Adult Health; PCP Nurse Practitioner Adult Health; Visit Provider Nurse Practitioner Adult Health
DX: I10 Essential (primary) hypertension (principal); E78.5 Hyperlipidemia, unspecified; I25.10 Atherosclerotic heart disease of native coronary artery without angina pectoris
CPT/HCPCS: 36415; 80048; 80061

== ENCOUNTER 2024-05-01 21:16 | Outpatient (REF) | payer MEDICARE, SELFPAY ==
[2024-05-03 16:20] LABS: HSV 1 DNA Result Negative (Negative); HSV 2 DNA Result Negative (Negative); Varicella Zoster DNA Result Negative ((See Note))
== END 2024-05-01 21:17 | disposition home or self-care (01) ==
LOC: LBN 21:16
PROVIDERS: PCP Nurse Practitioner Adult Health; Visit Provider Physician Assistant Medical
DX: L28.2 Other prurigo (principal); R21 Rash and other nonspecific skin eruption
CPT/HCPCS: 87529; 87798

== ENCOUNTER → 2024-07-27 11:02 | Outpatient (BNVA) | payer MEDICARE, SELFPAY | PROVIDERS: PCP Nurse Practitioner Adult Health; Visit Provider Internal Medicine Cardiovascular Disease | DX: I25.10 Atherosclerotic heart disease of native coronary artery without angina pectoris (principal) | CPT/HCPCS: 99213 ==

== ENCOUNTER 2025-04-12 04:20 | Outpatient (CLI) | payer MEDICARE, SELFPAY ==
[2025-04-12 11:28] LABS: Anion Gap 6.4 mmol/L (3-11); BUN 19 mg/dL (7-18); CO2 31.6 mmol/L (21.0-32.0); Calcium 9.3 mg/dL (8.5-10.1); Calculated LDL 45 mg/dL (<100); Chloride 105 mmol/L (98-107); Cholesterol 123 mg/dL (<200); Estimated GFR 78.98 (mL/min/1.73m2); Glucose 99 mg/dL (74-106); HDL Cholesterol 63 mg/dL (>or=40); Potassium 4.2 mmol/L (3.5-5.1); Sodium 143 mmol/L (136-145); Triglyceride 79 mg/dL (<150)
== END 2025-04-12 04:21 | disposition home or self-care (01) ==
PROVIDERS: PCP Nurse Practitioner Adult Health; Referring Provider Nurse Practitioner Adult Health; Visit Provider Nurse Practitioner Adult Health
DX: I10 Essential (primary) hypertension (principal); E78.2 Mixed hyperlipidemia
CPT/HCPCS: 36415; 80048; 80061

== ENCOUNTER 2025-04-19 02:35 | Outpatient (CLI) | payer MEDICARE, SELFPAY ==
[2025-04-19 15:13] LABS: Bilirubin Negative (Negative); Blood Negative (Negative); Clarity Clear (Clear); Glucose Negative (Negative); Ketones Negative (Negative); Leukocyte Esterase Negative (Negative); Nitrite Negative (Negative)
[2025-04-19 23:07] LABS: PSA, Screening 0.7 ng/mL (<=6.5)
== END 2025-04-19 02:36 | disposition home or self-care (01) ==
LOC: LBO 02:35
PROVIDERS: PCP Nurse Practitioner Adult Health; Referring Provider Nurse Practitioner Adult Health; Visit Provider Nurse Practitioner Adult Health
DX: R39.11 Hesitancy of micturition (principal); R39.9 Unspecified symptoms and signs involving the genitourinary system
CPT/HCPCS: 36415; 84153; 81003

== ENCOUNTER → 2025-05-11 14:26 | Outpatient (BNVA) | payer MEDICARE, SELFPAY | PROVIDERS: PCP Nurse Practitioner Adult Health; Referring Provider Nurse Practitioner Adult Health; Visit Provider Student in an Organized Health Care Education/Training Program | DX: M65.341 Trigger finger, right ring finger (principal); I10 Essential (primary) hypertension | CPT/HCPCS: 99213 ==

== ENCOUNTER 2025-08-02 08:11 | Outpatient (CLI) | payer MEDICARE, SELFPAY ==
--- NOTE | 2025-08-02 08:00 | RT.EKG_ITS ---
APPROVED REPORT Exam: Resting ECG Reason for Exam: CAD Patient Location: O HR:65 bpm ECG Measurements Heart Rate 65 AXIS NY 180 P 40 QRSd 82 QRS 68 QT 410 T 24 QTc 427 Conclusion Sinus rhythm...normal P axis, V-rate 50- 99 Normal Electrocardiogram
== END 2025-08-02 08:12 | disposition home or self-care (01) ==
LOC: DI.CARD 08:12
PROVIDERS: PCP Nurse Practitioner Adult Health; Visit Provider Registered Nurse
DX: I25.10 Atherosclerotic heart disease of native coronary artery without angina pectoris (principal)
CPT/HCPCS: 93010

== ENCOUNTER → 2025-08-02 12:58 | Outpatient (BNVA) | payer MEDICARE, SELFPAY | PROVIDERS: PCP Nurse Practitioner Adult Health; Referring Provider Nurse Practitioner Adult Health; Visit Provider Registered Nurse | DX: I25.10 Atherosclerotic heart disease of native coronary artery without angina pectoris (principal); R07.9 Chest pain, unspecified; Z79.01 Long term (current) use of anticoagulants | CPT/HCPCS: 99214; 93005 ==

== ENCOUNTER 2025-08-05 01:01 | Outpatient (CLI) | payer MEDICARE, SELFPAY ==
--- NOTE | 2025-08-05 05:00 | ETT_ITS ---
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 Nuclear Acquisition: Rest Tc-99m/Stress Tc-99m 1 day Rest Stress HR Resting HR Supine: 68 bpm Max Heart Rate (APMHR): 146 bpm Resting HR Standin bpm Target HR (85% APMHR): 124 bpm Max HR Achieved: 145 bpm % of APMHR: 99 Recovery HR: 85 bpm HR response to stress: Normal HR response to stress BP Resting BP Supine: 162/98 mmHg Resting BP Standin/104 mmHg Max BP: 210/90 mmHg Recovery BP: 158/90 mmHg BP response to stress: Abnormal hypertensive response to stress. ECG Resting ECG: Sinus Rhythm, nonspecific ST-T abnormalities Stress ECG: Sinus Tachycardia, nonspecific ST-T abnormalities ST Change: No significant ST segment changes noted Arrhythmia: Occasional PVC's, Occasional PAC's Recovery ECG: Sinus Rhythm, nonspecific ST-T abnormalities Recovery ST Change: No significant ST segment changes noted Recovery Arrhythmia: Occasional PAC's, occasional PVC's Clinical Reason for Termination: Mod-severe SOB, Target HR Achieved Stress Symptoms: Mod-severe SOB Exercise duration: 07 min33 sec Highest Stage Reached: Stage 3: 3.4 mph at 14% grade. Exercise capacity: 7.4 METs Angina Score: None Rate Pressure Product: [id number] Stress ECG Conclusion 1. Resting electrocardiogram showed low voltage and nondiagnostic ST-T abnormalities 2. Patient exercised on the Galo protocol and completed workload of 7 METS 3. Mildly hypertensive blood pressure response to exercise. Normal heart rate response to exercise. Patient achieved 99% of maximal predicted heart rate for age 4. There was no electrocardiographic evidence of myocardial ischemia 5. There were no significant dysrhythmias Stress Test Summary STAGE Time (mins) Speed (mph) Grade (%) HR BP SpO2 SYMPTOMS METS Supine 68 162/98 97% Standing 69 184/104 1 3 1.7 10 105 192/82 4.5 2 6 2.5 12 128 200/88 Mod SOB 7 3 9 3.4 14 145 Mod-severe SOB 10 1 min recovery 113 210/90 96% Mod-severe SOB 3 min recovery 88 182/80 98% 6 min recovery 85 158/90 98% All symptoms resolved Patient requested to stop treadmill r/t mod-severe SOB. Target HR achieved. All symptoms resolved by test end. Patient left ambulatory in no apparent distress.
== END 2025-08-05 01:21 ==
LOC: DI 01:01
PROVIDERS: PCP Nurse Practitioner Adult Health; Visit Provider Internal Medicine Cardiovascular Disease
DX: R07.9 Chest pain, unspecified (principal)
CPT/HCPCS: 93016; 93018; 93017

== ENCOUNTER → 2025-08-09 14:16 | Outpatient (BNVA) | payer MEDICARE, SELFPAY | PROVIDERS: PCP Nurse Practitioner Adult Health; Referring Provider Nurse Practitioner Adult Health; Visit Provider Registered Nurse | DX: I25.10 Atherosclerotic heart disease of native coronary artery without angina pectoris (principal); Z79.02 Long term (current) use of antithrombotics/antiplatelets | CPT/HCPCS: 99214 ==

== ENCOUNTER → 2025-08-18 11:12 | Outpatient (BNVA) | payer MEDICARE, SELFPAY | PROVIDERS: PCP Nurse Practitioner Adult Health; Referring Provider Nurse Practitioner Adult Health; Visit Provider Student in an Organized Health Care Education/Training Program | DX: M65.341 Trigger finger, right ring finger (principal) | CPT/HCPCS: 99214 ==

== ENCOUNTER 2025-09-09 09:31 | Day surgery (SDC) | payer MEDICARE, SELFPAY ==
--- NOTE | 2025-09-09 07:16 | W.PM.DSUDISC ---
Date of service: 09/09/25 Discharge Plan Disposition Patient Disposition: Home Condition: Stable Discharge Details Attending Provider: Trevor Santos Primary Care Provider: Marah Solomon Home Meds and New Rx's Prescriptions: Continued aspirin 81 mg tablet,delayed release (DR/EC) 81 mg PO DAILY cyanocobalamin (vitamin B-12) 1,000 mcg capsule 1,000 mcg PO DAILY cholecalciferol (vitamin D3) 5,000 unit capsule 5,000 unit PO DAILY atorvastatin 20 mg tablet See Rx Instructions .ROUTE .COMPLEX Qty: 90 3RF Dose Instruction: TAKE 1 TABLET AT BEDTIME Rx Instructions: TAKE 1 TABLET AT BEDTIME metoprolol succinate 50 mg tablet extended release 24 hr 50 mg PO .nightly Qty: 90 6RF latanoprost 0.005 % drops 1 drp ophthalmic (eye) HS Patient Comments: ou dorzolamide-timolol [Cosopt] 22.3-6.8 mg/mL drops 1 drp ophthalmic (eye) BID Rx Instructions: ou note dated 07/25/20 cgc Discharge Instructions Additional Instructions: Surgery: Right ring finger trigger release on 09/09/2025 Activity: Protect hand for a few weeks. Gently increase finger motion and hand gripping to prevent stiffness. Recommend elevation to minimize swelling and discomfort. Prescriptions: None Resume home medicines, use [id number] Tylenol (acetaminophen) as needed for mild pain and ibuprofen (Motrin) or naproxen (Aleve) as needed for moderate to severe pain and swelling. Dressings: Leave dressing in place for 3 days. May then remove and leave open to air or cover incision with Band-Aid. May get wet after 5 days. Follow-up: 10-[address] Santos Please call the office during business hours with any questions or concerns. Stand Alone Forms: Carina Neil ([facility]U) Referrals: Trevor Santos MD [ [facility] STAFF PHYSICIAN, Orthopaedic Surgical] - 09/21/25 11:00 am Discharge Orders Discharge Orders: Discharge Order (Routine); Ordered 09/09/25 Ordered By: Jeremy Tatum DS: Diagnosis Discharge Diagnosis (1) Trigger finger, right ring finger: Status: Acute
--- NOTE | 2025-09-09 07:28 | W.PM.OP ---
Operative Note Operative Note PRE-OP DIAGNOSIS: Right ring trigger finger PROCEDURE: Right ring finger trigger release, CPT# 14061 SURGEON: Trevor Santos DOG DAYCARE PROVIDER: None None ANESTHESIA TYPE: Local By Surgeon Refer to Anesthesia Record ESTIMATED BLOOD LOSS: 1 TOURNIQUET TIME: 0 COMPLICATIONS: None Patient was transported to: same day Patient's condition: stable Indications: Please see complete medical record for details. Procedure Description: In the operating room, the patient was positioned supine on the stretcher. All bony prominences were padded. Preoperative antibiotics were omitted. The correct patient, procedure, and side of the procedure were all verified prior to beginning. Local anesthesia was induced about the site with 10cc of 1% lidocaine containing epinephrine buffered with 1 cc of sodium bicarbonate. The Right hand was prepped and draped in the usual sterile fashion. Proper analgesia was confirmed. A small volar longitudinal approach was made overlying the ring finger MCP joint. Soft tissues were swept to the sides and retracted to expose the A1 cosme. The release was started centrally with a knife and completed at the proximal and distal margins with tenotomy scissors. Care was taken to protect the flexor tendons. The tendons were inspected and showed some superficial fraying, but no significant tearing. Appropriate flexor tendon excursion was confirmed. The patient readily demonstrated full range of motion of the finger without triggering. The small incision was irrigated and then dried. Hemostasis was appropriate. The incision was closed using 3-0 nylon in a horizontal mattress fashion. Xeroform was applied followed by gauze and the hand was gently compressed with an George bandage. The patient tolerated local anesthesia without complication and was transferred out of the operating room in a stable condition. Date of Procedure: 09/09/25
[2025-09-09 09:49] VITALS: BP 174/80; PULSE 66; RESP 16; TEMP 36.1; O2SAT 99
[2025-09-09] MEDS: Lidocaine 1% Pres-Free W/EPI 1/200,000 10 ML VIAL (10:22)
[2025-09-09] MEDS: Sodium Bicarbonate 50 MEQ/50 ML VIAL (10:22)
[2025-09-09 10:47] VITALS: BP 155/86; PULSE 55; RESP 18; TEMP 36.3; O2SAT 99
== END 2025-09-09 11:10 | disposition home or self-care (01) ==
LOC: SUR 09:32
PROVIDERS: PCP Nurse Practitioner Adult Health; Visit Provider Student in an Organized Health Care Education/Training Program
PROC: (CPT 26055; principal; 2025-09-09 10:00)
DX: M65.341 Trigger finger, right ring finger (principal)
CPT/HCPCS: 26055; J2004

== ENCOUNTER → 2025-09-21 11:07 | Outpatient (BNVA) | payer MEDICARE, SELFPAY | PROVIDERS: PCP Nurse Practitioner Adult Health; Referring Provider Nurse Practitioner Adult Health; Visit Provider Student in an Organized Health Care Education/Training Program | DX: Z47.89 Encounter for other orthopedic aftercare (principal); M65.341 Trigger finger, right ring finger | CPT/HCPCS: 99024 ==